=== PATIENT | female | born 1965 | race Two or more races ===

== ENCOUNTER 2021-08-15 10:44 | Emergency (ER) | payer OTHER ==
[2021-08-15 10:56] VITALS: BP 134/79; PULSE 67; TEMP 98; BMI 27.1
[2021-08-15] MEDS ORDERED: KETOROLAC TROMETHAMINE 30 MG/1 ML VIAL IM ONE (12:22)
[2021-08-15] MEDS ORDERED: KETOROLAC TROMETHAMINE 30 MG/1 ML VIAL ONE (12:27)
== END 2021-08-15 14:36 | disposition home or self-care (01) ==
LOC: JER 10:44
PROC: 3E0233Z Introduction of Anti-inflammatory into Muscle, Percutaneous Approach (ICD-10-PCS; principal; 2021-08-15)
DX: S63.92XA Sprain of unspecified part of left wrist and hand, initial encounter (principal); M25.522 Pain in left elbow; M25.512 Pain in left shoulder; X50.0XXA Overexertion from strenuous movement or load, initial encounter; W19.XXXA Unspecified fall, initial encounter
CPT/HCPCS: 73030-TC-LT-FY; 73070-TC-LT-FY; 73110-TC-LT-FY; 73130-TC-LT-FY; 99285-25